=== PATIENT | female | born 1950 | race Asian ===

== ENCOUNTER 2016-10-16 06:56 | Day surgery (SDC) | payer MEDICARE, OTHER ==
--- NOTE | 2016-10-15 16:48 | PREOPHP ---
DATE OF ADMISSION: 10/16/2016 HISTORY OF PRESENT ILLNESS: This 65-year-old patient is admitted for elective cataract surgery of the right eye. The patient states that the vision has been decreased for the past 2 years and 2 years ago underwent cataract surgery of the left eye. PAST MEDICAL HISTORY: Positive for hypertension. MEDICATIONS: Cozaar. ALLERGIES: THERE ARE NO KNOWN ALLERGIES. PHYSICAL EXAMINATION: EYE: On examination, visual acuity with best correction, is 20/80 in the right eye and 20/40 in the left eye. Slit lamp examination reveals nuclear sclerotic and posterior subcapsular cataract in the right eye and a posterior chamber intraocular lens in the left eye. Applanation tonometry is 13 mmHg in both eyes. Examination of the retina was noted to be within normal limits. DIAGNOSIS: Cataract, right eye. PLAN: Cataract extraction with lens implant, right eye. The risks and alternatives of the surgery have been discussed with the patient, as well as the hopeful improvement of visual acuity leading to greater ability to perform activities of daily living. The patient understands this and agrees to proceed with surgery. Dictated By: Benjamín Laura MD /[email or web address] /Document#: [id number]
[2016-10-16] VITALS (8 sets, daily range): BP systolic 136–162; BP diastolic 63–78; PULSE 62–85; RESP 14–20; Ht 165.1 cm; Wt 57.3 kg
[~2016-10-16] VITALS: Ht 165.1 cm; Wt 57.3 kg
[2016-10-16] MEDS ORDERED: hydrALAzine 20 MG INJ ONE (07:00)
[2016-10-16] MEDS ORDERED: LOSA25TA5 PO (08:30)
[2016-10-16] MEDS ORDERED: CARBACHOL 0.01% 1.5 ML OPH INJ RIGHT EYE ONE (09:00)
[2016-10-16] MEDS ORDERED: TROPICAMIDE 1% 2 ML OPH OPER SCH (09:00)
[2016-10-16] MEDS ORDERED: DICLOFENAC 0.1% 2.5 ML OPH OPER SCH (09:00)
[2016-10-16] MEDS ORDERED: CIPROFLOXACIN 0.3% 2.5 ML OPH OPER SCH (09:00)
[2016-10-16] MEDS ORDERED: CYCLOPENTOLATE/PHENYLEPH 2 ML OPH OPER SCH (09:00)
[2016-10-16] MEDS ORDERED: HYALURONATE/CHONDROITIN 1ML OPH INJ IO ONE (09:00)
[2016-10-16] MEDS ORDERED: DEXAMETHASONE 4 MG/ML 1 ML INJ INJ ONE (09:00)
[2016-10-16] MEDS ORDERED: CEFAZOLIN 1 GM INJ INJ ONE (09:00)
[2016-10-16] MEDS ORDERED: DEXAMETHASONE 4 MG/ML 1 ML INJ ONE (09:42)
[2016-10-16] MEDS ORDERED: HYALURONATE/CHONDROITIN 1ML OPH INJ ONE (09:42)
[2016-10-16] MEDS ORDERED: GENTAMICIN 80 MG INJ ONE (09:42)
[2016-10-16] MEDS ORDERED: CARBACHOL 0.01% 1.5 ML OPH INJ ONE (09:42)
[2016-10-16] MEDS ORDERED: EPINEPHrine 1 MG INJ ONE (09:42)
[2016-10-16] MEDS ORDERED: LIDOCAINE 4% (MPF) 5 ML INJ ONE (09:42)
[2016-10-16] MEDS ORDERED: PROPOFOL 20 ML ONE (10:02)
[2016-10-16] MEDS ORDERED: hydrALAzine 20 MG INJ IV PRN (10:30)
[2016-10-16] MEDS ORDERED: FENTAnyl 50 MCG/ML VIAL IV PRN ×2 (10:30)
[2016-10-16] MEDS ORDERED: LABETALOL HCL 20MG INJ IV PRN (10:30)
[2016-10-16] MEDS ORDERED: CEFAZOLIN 1 GM INJ ONE (10:35)
--- NOTE | 2016-10-16 10:35 | OPR ---
Date/Time of Note Date/Time of Note DATE: 10/16/16 TIME: 10:34 Operative Report Preoperative Diagnosis cataract od Postoperative Diagnosis same Operation/Procedure Performed cataract surgery Surgeon: LAUREANO ACOSTA MD Anesthesia: MAC Estimated Blood Loss: none Grafts/Implants posterior chamber lens implant Complications: None LAUREANO ACOSTA MD Oct 16, 2016 10:35
--- NOTE | 2016-10-17 06:08 | OPR ---
DATE OF OPERATION: 10/16/2016 PREOPERATIVE DIAGNOSIS: Cataract, right eye. POSTOPERATIVE DIAGNOSIS: Cataract, right eye. SURGEON: Benjamín Laura MD ANESTHESIA: Local standby. ANESTHESIOLOGIST: Bri Machado CRNA. OPERATION: Phacoemulsification with posterior chamber intraocular lens implant, right eye. PROCEDURE: The patient was brought to the operating room and placed on the table with an IV in place and the patient attached to an cardiac monitor. Oxygen was given via face mask. After some intravenous sedation was administered, local anesthesia was given using Xylocaine 2% with epinephrine, mixed with Marcaine 0.5%. This was given in a lid block and retrobulbar injection. The patient was then prepped and draped in the usual sterile manner. A wire lid speculum was inserted between the lids of the right eye. A Superblade was used to enter the anterior chamber at the corneoscleral limbus at the 10:30 o'clock position. A separate incision was made using a 3.0-mm keratome which entered the corneoscleral junction at the 12 o'clock position. Through this 3- mm opening, an irrigating cystotome was introduced into the anterior chamber. The chamber was filled with Viscoat and an anterior capsulotomy was performed. Balanced salt solution was then used for hydrodissection of the lens. A phacoemulsification handpiece was then brought into the field and introduced into the anterior chamber. The lens nucleus was emulsified using a deep groove and cracking the nucleus into quadrants. Following this, each quadrant was aspirated and emulsified at the pupillary margin. After this was completed, the irrigation/aspiration handpiece was brought to the field, introduced into the posterior chamber, and the lens cortical material was removed. When this was completed, additional Viscoat was injected into the anterior and posterior chambers. The 3-mm opening had its internal lips enlarged, and then the posterior chamber intraocular lens measuring 27.0 diopters ([employer], model #LI60A0) was then injected into the posterior chamber using the lens injector system. After the leading haptic was introduced into the capsular bag and the lens optic was present in the center of the eye, the injector was removed and the trailing haptic was grasped with non-toothed forceps and introduced into the capsular fold superiorly. A Sinskey hook was then used to rotate the intraocular lens so that the lips were oriented in the horizontal meridian. One 10-0 nylon suture was placed across the wound. Prior to tying, the irrigation/aspiration handpiece was reintroduced into the anterior chamber to remove the Viscoat. Miochol was instilled to constrict the pupil, and then the 10-0 nylon suture was tied. The ends were cut short and then the knot was buried. Then, 0.5 mL of dexamethasone and 0.5 mL of Ancef were injected into the sub-Tenon space in the inferior fornix. Ciloxan drops were then placed on the surface of the eye. The speculum was removed and a patch was applied. The patient then left the operating room in satisfactory condition. Dictated By: Benjamín Laura MD /[email or web address] /Document#: [id number]
== END 2016-10-16 11:35 | disposition home or self-care (01) ==
LOC: SDS 06:56
PROVIDERS: ATTEND Ophthalmology
DX: H25.11 Age-related nuclear cataract, right eye (principal); I10 Essential (primary) hypertension
CPT/HCPCS: 66984; J0171; J0360; J0690; J1100; J1580; V2632